=== PATIENT | female | born 1940 | race Caucasian/White ===

== ENCOUNTER 2024-02-11 06:13 | Emergency (ER) | payer MEDICARE, BC, SELFPAY ==
[2024-02-11 06:15] VITALS: BP 161/57; BMI 29.9
--- NOTE | 2024-02-11 06:25 | ED.GENMED ---
History of Present Illness
General
Chief Complaint: Dizziness
Source: patient
Exam Limitations: none
Time Seen by Provider: 02/11/24 06:18
History of Present Illness
History of Present Illness:
See MDM
Past History
Past History
ED Past Medical History: Cancer (Breast cancer, left mastectomy), HTN, Other (heart murmur) and Other (Irritable bowel syndrome)
ED Past Surgical History: Cardiac (Pacemaker), Gynecological (Left mastectomy) and Other (Lumpectomy)
Social History
Tobacco: Non-smoker
Alcohol: None
Drug: None
Personal:
Living: with family
Employment: Retired
Family History
Family History: Other (Noncontributory)
Phy Exam
Physical Exam
Physical Exam:
See MDM
Course
Orders/Labs/Results
Orders:
Orders
02/11/24 06:23
Electrocardiogram (*1) Urgent
Reason for Study: Vertigo / Dizzy
02/11/24 06:24
EKG- Treatment ONCE
CMP [Comprehensive Metabolic Panel] Urgent
Complete Blood Count/With Diff Urgent
02/11/24 06:25
Meclizine [Antivert] 25 mg PO NOW STA
02/11/24 07:24
Urinalysis Reflex To Culture Urgent
Date Specimen was Collected: 02/11/24
Time Specimen was Collected: 06:24
Urine Microscopic Reflex Cult Urgent
Urine Culture Urgent
MARISSA Source: U
Specimen Description:
Date Specimen was Collected: 02/11/24
Time Specimen was Collected: 06:24
02/11/24 07:57
Amoxicillin 875 mg/Clav 125 mg [Augmentin 875 mg/125 mg] 1 tablet PO NOW STA
Abnormal Lab Results
02/11/24 02/11/24
06:24 07:24
MCHC 31.8 L g/dL
(33.0-37.0)
RDW 14.9 H %
(11.5-14.5)
Abs Immat Gran (auto) 0.1 H 10^3/uL
(0-0.05)
Absolute Neuts (auto) 9.4 H 10^3/uL
(1.4-6.5)
Absolute Lymphs (auto) 0.8 L 10^3/uL
(1.2-3.4)
Neutrophils % 88.8 H %
(42.2-75.2)
Lymphocytes % 7.8 L %
(20.5-51.1)
Monocytes % 1.6 L %
(1.7-9.3)
Carbon Dioxide 20 L mmol/L
(22-30)
BUN 37 H mg/dl
(7-17)
Creatinine 1.3 H mg/dL
(0.6-1.0)
Glucose 173 H mg/dl
(70-99)
Urine Ketones Trace A
(Negative)
Ur Occult Blood Reflex 3+ A
(Negative)
Urine Nitrite (Reflex) Positive A
(Negative)
Leukocyte Esterase Rfl 2+ A
(Negative)
Urine Glucose 3+ A
(Negative)
Urine Albumin (Reflex) 1+ A
(Neg - Trace)
02/11/24 06:24
02/11/24 06:24
Vital Signs
Initial and Last Documented VS:
Initial Vital Signs
Temp Pulse Resp BP Pulse Ox
98.2 F 99 16 161/57 96
02/11/24 06:15 02/11/24 06:15 02/11/24 06:15 02/11/24 06:15 02/11/24 06:15
Last Documented Vital Signs
Temp Pulse Resp BP Pulse Ox
98.2 F 85 17 125/49 95
02/11/24 06:15 02/11/24 07:45 02/11/24 07:45 02/11/24 07:00 02/11/24 07:45
MDM/Problems Addressed
Differential Diagnosis Includes:
HPI and MDM Narrative:
83-year-old female presenting for evaluation of improved dizziness. She noticed the symptoms when she stood up from bed. She saw the room and fell like she was going to pass out. On arrival, patient states her symptoms are resolved. On exam, she
is well-appearing nontoxic. She does have dry mucous membranes as she does admit to increased thirst. She recently started Farxiga 2 weeks ago. With this, she has noted cloudy urine. There is no cerebellar signs on exam. Symptoms are
reproducible with movement of her head to the right there is no nystagmus noted. Will give dose of meclizine and obtain screening EKG. Obtain basic blood work and urinalysis and continue to monitor.
Physical exam
General: Well appearing and non-toxic
HEENT: protecting airway. Dry mucous membranes. Pupils equal reactive. EOMI
Neck: supple
CV: No evidence of cyanosis. Regular rate and rhythm
Resp: No accessory muscle use
Abd: Non-distended
Extremities: No deformities
Neuro: alert. Normal finger-nose bilaterally
Psych: Normal affect
Skin: Intact
Problems Addressed including Acute and Chronic Conditions affecting care:
1. Dizziness
Acuity: acute
Prognosis: stable
Details: Symptoms of story likely benign paroxysmal positional vertigo. No cerebellar signs on exam. Will give meclizine and obtain basic blood work
2. Cloudy urine
Acuity: acute
Prognosis: stable
Details: Will obtain urinalysis
3. Hyperglycemia
Acuity: acute
Prognosis: stable
Details: Discussed talking to PCP about tighter blood sugar control
4. UTI
Acuity: acute
Prognosis: stable
Details: Based on prior E. coli abx susceptibilities in 2020, will start Augmentin
Updates
7:15 AM patient declined the meclizine because she states she is feeling better. I did explain that her creatinine is worse and I am worried about her GFR. We discussed talking to her PCP about whether or not to continue Farxiga.
8 AM we discussed UTI and patient states she feels comfortable going home. She will call her PCP today
Differential Diagnosis (but not limited to): Vertigo, dehydration, UTI
Testing considered: CT head but she has no cerebellar signs and she is currently symptom-free at rest
Drug therapy (if applicable): OTC meds, please see d/c instruction regarding Rx drugs
Amount and/or Complexity of Data Reviewed
Clinical info obtained from: Patient
External data reviewed: N/A
Labs I independently reviewed (but not limited to): Elevated creatinine
Radiology: N/A
Pulse Ox: not hypoxic
EKG independently reviewed: Paced rhythm, wide QRS, no STEMI
Cooling Pan Tender: Paced rhythm
Critical Care: N/A
Risk of Complication:
Social Determinants of health: Good social support
Discussed with other providers: N/A
Escalation of Care includes Admit/Obs: After being observed in the Emergency Department, pt stable for discharge.
Occasional wrong word or 'sound a like' substitutions may have occurred due to the inherent limitations of voice recognition software. Read the chart carefully and recognize, using context, where substitutions have occurred.
*Critical Care Note
Total Time (30-74mins, 75-104mins- exclusive of procedures): Not Applicable
ED Attending Note
-
Portions of this chart may have been created with voice recognition software.� Occasional wrong word or��sound alike� substitutions may have occurred due to the inherent limitations of voice recognition software.
Discharge Plan
Departure
Patient Disposition: Home (Routine Discharge)
Date of Disposition: 02/11/24
Time of Disposition: 07:58
Patient with high blood pressure during this ER visit?: No
Discharge Problem:
Vertigo, Acute UTI
Instructions: Vertigo (a Type of Dizziness) (DC)
Prescriptions:
New
amoxicillin-pot clavulanate 875-125 mg tablet
1 tab PO BID Qty: 10 0RF
meclizine [Antivert] 25 mg Tablet,Chewable
25 mg PO BIDPRN PRN (Reason: nausea or vertigo) Qty: 10 0RF
No Action
multivitamin [Daily Multiple] 1 EACH tablet
1 ea PO HS
nifedipine 30 MG tablet extended release
60 mg PO DAILY
rosuvastatin 10 MG tablet
10 mg PO QPM
glycopyrrolate 1 MG tablet
1 mg PO PRN PRN (Reason: diarrhea)
polyethylene glycol 3350 17 GRAMS powder in packet
17 grams PO DAILY PRN (Reason: constipation)
metoprolol succinate [Toprol XL] 100 MG tablet extended release 24 hr
100 mg PO HS
famotidine 20 MG tablet
20 mg PO DAILY
docusate sodium 100 MG capsule
100 mg PO HS
furosemide 20 MG tablet
20 mg PO DAILY
letrozole [Femara] 2.5 MG tablet
2.5 mg PO DAILY
Referrals:
Nasrin Oliveira DO [Family Provider] -
Activity Restrictions/Additional Instructions:
Please return for any worsening symptoms.
You may return at any time if you have further concerns.
Please follow up with your doctor at the first available appointment, preferably this week. Please talk to your doctor about your kidney levels and whether or not to continue Farxiga.
Thank you for choosing [facility].
Interventions
Interventions:
*Risk Screen - Suicide Last Done: 02/11/24 06:15
*General Assessment Last Done: 02/11/24 06:15
*Neglect/Abuse Screening Last Done: 02/11/24 06:15
ED- Fall Risk Assessment Last Done: 02/11/24 06:49
*ED COVID-19 Vaccine History Last Done: 02/11/24 06:15
ED- Neurological Assessment Last Done: 02/11/24 06:49
ED- Cardiac Assessment Last Done: 02/11/24 06:49
ED Swallowing Screen Last Done: 02/11/24 07:10
Discharge Date and Time
Print Language: [id number]
[2024-02-11 06:30] LABS: % Basophils 0.4 % (0-2); % Eosinophils 0.9 % (0-6); % Immature Granulocytes 0.5 % (0-0.5); % Lymphocytes 7.8 % (20.5-51.1); % Monocytes 1.6 % (1.7-9.3); % Neutrophils 88.8 % (42.2-75.2); Absolute Eosinophils 0.1 10^3/uL (0-0.7); Absolute Immature Granulocytes 0.1 10^3/uL (0-0.05); Absolute Lymphocytes 0.8 10^3/uL (1.2-3.4); Absolute Monocytes 0.2 10^3/uL (0.1-0.6); Absolute Neutrophils 9.4 10^3/uL (1.4-6.5); Hematocrit 42.8 % (37.0-47.0); Hemoglobin 13.6 g/dL (12.0-16.0); Mean Corp Hgb Conc. 31.8 g/dL (33.0-37.0); Mean Corpuscular Hgb 28.1 pg (27.0-31.0); Mean Corpuscular Volume 88.4 fL (81.0-99.0); Mean Platelet Volume 9.3 fL (7.4-10.4); Nucleated Red Blood Cells % 0 %; Platelet Count 210 10^3/uL (130-400); Red Blood Cell Count 4.84 10^6/uL (4.20-5.40); Red Cell Dist. Width 14.9 % (11.5-14.5); White Blood Cell Count 10.6 10^3/uL (4.8-10.8)
[2024-02-11] MEDS: ANTIVERT PO (06:36)
[2024-02-11 06:44] LABS: ALT (SGPT) 31 U/L (0-35); AST (SGOT) 30 U/L (14-36); Albumin 4.5 g/dl (3.5-5.0); Alkaline Phosphatase 91 U/L (38-126); Blood Urea Nitrogen 37 mg/dl (7-17); Calcium 9.1 mg/dl (8.4-10.2); Carbon Dioxide 20 mmol/L (22-30); Chloride 106 mmol/L (98-107); Estimated Creatinine Clearance 29 ml/min; Glucose 173 mg/dl (70-99); Potassium 4.5 mmol/L (3.5-5.1); Sodium 141 mmol/L (135-145); Total Bilirubin 0.5 mg/dl (0.2-1.3); Total Protein 7.4 g/dl (6.3-8.2)
[2024-02-11 07:00] VITALS: BP 125/49
[2024-02-11] MEDS: ANTIVERT 25 MG PO (07:15)
[2024-02-11 07:33] LABS: Urine Albumin 1+ (Neg - Trace); Urine Bilirubin Negative (Negative); Urine Character Very Cloudy (Clear); Urine Color Yellow; Urine Glucose 3+ (Negative); Urine Ketone Trace (Negative); Urine Leukocyte 2+ (Negative); Urine Nitrite Positive (Negative); Urine Occult Blood 3+ (Negative); Urine Urobilinogen Negative (Neg - 1+); Urine pH 6.5 (5.0-9.0)
[2024-02-11 07:58] LABS: Urine Bacteria Moderate (Negative); Urine White Cell >100 /HPF (0-5)
[2024-02-11] MEDS: AUGMENTIN 875 MG/125 MG 1 TABLET PO (08:00)
[2024-02-11 08:01] VITALS: BP 130/57
== END 2024-02-11 08:19 | disposition home or self-care (01) ==
LOC: EMR 06:13
PROVIDERS: EMERGENCY PHYSICIAN Student in an Organized Health Care Education/Training Program; FAMILY PHYSICIAN Internal Medicine
DX: N39.0 Urinary tract infection, site not specified (principal); R42 Dizziness and giddiness; R73.9 Hyperglycemia, unspecified; I10 Essential (primary) hypertension; Z85.3 Personal history of malignant neoplasm of breast; Z90.12 Acquired absence of left breast and nipple; Z95.0 Presence of cardiac pacemaker
CPT/HCPCS: 99284; 80053; 81003; 81015; 85025; 87077; 87086; 93005